=== PATIENT | male | born 1940 | race Caucasian/White ===

== ENCOUNTER 2017-03-27 15:03 | Emergency (ER) | payer MEDICAID, OTHER, SELFPAY ==
[~2017-03-27] VITALS: Ht 177.8 cm; Wt 69.2 kg
[2017-03-27] MEDS ORDERED: SODIUM CHLORIDE 0.9% 1,000 ML IV ONE (15:58)
[2017-03-27] MEDS ORDERED: SODIUM CHLORIDE FLUSH 10ML SYR IVF ONE (16:00)
[2017-03-27] MEDS ORDERED: CLOP75TA22 PO (16:05)
[2017-03-27] MEDS ORDERED: LEVO50TA5 PO (16:05)
[2017-03-27] MEDS ORDERED: CARV6.252 PO (16:05)
[2017-03-27 16:34] LABS: BLOOD UREA NITROGEN 17 mg/dL (7-18)
[2017-03-27] MEDS ORDERED: OMNIPAQUE 350 MG/ML, 150 ML BOTTLE ONE (18:12)
[2017-03-27 19:53] VITALS: BP 206/109
== END 2017-03-27 20:30 | disposition home or self-care (01) ==
LOC: ED 16:01
DX: I10 Essential (primary) hypertension (principal); I25.10 Atherosclerotic heart disease of native coronary artery without angina pectoris; F17.210 Nicotine dependence, cigarettes, uncomplicated; E03.9 Hypothyroidism, unspecified; I72.4 Aneurysm of artery of lower extremity; I73.9 Peripheral vascular disease, unspecified; J44.9 Chronic obstructive pulmonary disease, unspecified; Z79.02 Long term (current) use of antithrombotics/antiplatelets; Z95.5 Presence of coronary angioplasty implant and graft; I70.212 Atherosclerosis of native arteries of extremities with intermittent claudication, left leg
CPT/HCPCS: 36415; 73706; 80048; 82040; 85025; 85610; 85730; 93005; 96360; 96361; 99285; J7030; Q9967

== ENCOUNTER → 2017-06-18 | Outpatient (CLI) | payer OTHER ==
[~2017-06-18] MED LIST: CARV6.252 PO; CLOP75TA52 PO; LEVO50TA5 PO
== END | disposition home or self-care (01) ==
LOC: RAD 11:40
PROVIDERS: ATTEND Family Medicine
DX: M51.37 Other intervertebral disc degeneration, lumbosacral region (principal)
CPT/HCPCS: 72100

== ENCOUNTER 2017-08-20 07:00 | Day surgery (SDC) | payer OTHER ==
[~2017-08-20] VITALS: Ht 177.8 cm; Wt 71.7 kg
[2017-08-20 07:45] VITALS: BP 178/100
[2017-08-20] MEDS ORDERED: LOSA100T6 PO (08:01)
[2017-08-20] MEDS ORDERED: LACTATED RINGERS 1,000 ML IV SCH (08:24)
[2017-08-20] MEDS ORDERED: FENTANYL PF 100 MCG/2ML ONE ×2 (09:28)
[2017-08-20] MEDS ORDERED: MIDAZOLAM 1 MG/ML, 2ML ONE (09:28)
[2017-08-20] MEDS ORDERED: HYDROmorphone 1 MG/ML, 1ML IV PRN (09:30)
[2017-08-20] MEDS ORDERED: hydrALAzine 20 MG/ML, 1ML IV PRN (09:30)
[2017-08-20] MEDS ORDERED: FENTANYL PF 100 MCG/2ML IV PRN (09:30)
[2017-08-20] MEDS ORDERED: PROMETHAZINE 25 MG/ML, 1ML IV PRN (09:30)
[2017-08-20] MEDS ORDERED: MEPERIDINE/PF 25MG/0.5ML IVPush PRN (09:30)
[2017-08-20] MEDS ORDERED: ONDANSETRON 2MG/ML, 2ML IVPush PRN (09:30)
[2017-08-20] MEDS ORDERED: LABETALOL 5MG/ML, 20ML IV PRN (09:30)
[2017-08-20] MEDS ORDERED: OXYcodone 5 MG/5 ML ORAL.SOL UDC PO PRN (09:30)
[2017-08-20] MEDS ORDERED: LIDOCAINE 1%, 2ML ONE (09:35)
[2017-08-20] MEDS ORDERED: PROPOFOL 10 MG/ML, 20ML ONE (10:12)
[2017-08-20] MEDS ORDERED: GLYCOPYRROLATE 0.2MG/1ML, 5ML ONE (10:12)
[2017-08-20] MEDS ORDERED: CEFAZOLIN 1,000 MG ONE (10:12)
[2017-08-20] MEDS ORDERED: PHENYLEPHRINE 10 MG/ML ONE (10:12)
[2017-08-20] MEDS ORDERED: ROCURONIUM 10 MG/ML,10ML ONE (10:12)
[2017-08-20] MEDS ORDERED: NEOSTIGMINE 1 MG/ML, 10ML ONE (10:12)
[2017-08-20] MEDS ORDERED: LIDOCAINE 2%, 20ML ONE (10:23)
[2017-08-20] MEDS ORDERED: VISIPAQUE 270 MG/ML, 50ML BOTTLE ONE (10:30)
[2017-08-20] MEDS ORDERED: HEPARIN 1,000 UNITS/ML, 10ML ONE (10:46)
[2017-08-20] MEDS ORDERED: PROTAMINE SULFATE 10 MG/ML, 25ML ONE (11:18)
[2017-08-20] MEDS ORDERED: CLOPIDOGREL 75 MG TABLET PO ONE (12:00)
[2017-08-20] MEDS ORDERED: HYDROcodone/APAP 5/325 TABLET ONE (13:37)
[2017-08-20] MEDS ORDERED: HYDROcodone/APAP 5/325 TABLET PO PRN (14:00)
== END 2017-08-20 15:05 ==
LOC: OUT 07:00
PROVIDERS: ATTEND Surgery
DX: I70.203 Unspecified atherosclerosis of native arteries of extremities, bilateral legs (principal); I77.9 Disorder of arteries and arterioles, unspecified; I10 Essential (primary) hypertension; E03.9 Hypothyroidism, unspecified; Z98.890 Other specified postprocedural states; Z95.5 Presence of coronary angioplasty implant and graft; Z79.82 Long term (current) use of aspirin; Z87.891 Personal history of nicotine dependence
CPT/HCPCS: 36140; 36200; 75625; 75716; 93005; J0690; J1644; J2250; J2370; J2704; J2710; J2720; J3010; J3490; J7120; Q9966; 75630

== ENCOUNTER → 2019-12-05 | Outpatient (CLI) | payer MEDICARE ==
[~2019-12-05] MED LIST changes: +LOSA100T14 PO
== END | disposition home or self-care (01) ==
LOC: CVU 13:39
PROVIDERS: ATTEND Nurse Practitioner Family
DX: I08.2 Rheumatic disorders of both aortic and tricuspid valves (principal); I65.23 Occlusion and stenosis of bilateral carotid arteries; I25.10 Atherosclerotic heart disease of native coronary artery without angina pectoris; I10 Essential (primary) hypertension; E78.5 Hyperlipidemia, unspecified
CPT/HCPCS: 93306; 93880

== ENCOUNTER → 2020-07-24 | Outpatient (CLI) | payer MEDICARE | END | disposition home or self-care (01) | LOC: RAD 11:09 | PROVIDERS: ATTEND Internal Medicine Hematology & Oncology | DX: R10.9 Unspecified abdominal pain (principal); Z90.49 Acquired absence of other specified parts of digestive tract | CPT/HCPCS: 78226; A9537 ==

== ENCOUNTER 2020-08-09 13:51 | Emergency (ER) | payer MEDICARE ==
[~2020-08-09] VITALS: Ht 177.8 cm; Wt 68.1 kg
--- NOTE | 2020-08-09 14:03 | NUR ---
triage note: urine specimen cup given to pt for urine sample
[2020-08-09 14:36] LABS: BASOPHILS % (AUTO) 0 % (0-1); EOSINOPHILS % (AUTO) 0 % (1-7); LYMPHOCYTES % (AUTO) 24 % (22-44); MEAN CORPUSCULAR HEMOGLOBIN 22.9 pg (27.5-34.5); MEAN CORPUSCULAR HGB CONC 31.7 g/dL (33.2-36.2); MONOCYTES % (AUTO) 11 % (2-9); NEUTROPHILS % (AUTO) 64 % (42-75); PLATELET COUNT 267 x10^3/uL (130-400); RED BLOOD COUNT 5.48 x10^6/uL (4.38-5.82); RED CELL DISTRIBUTION WIDTH 20.3 % (9.4-14.8)
[2020-08-09 15:03] LABS: MD MORPH REVIEW ONLY
[2020-08-09 15:06] LABS: CHLORIDE 103 mmol/L (98-107); INTERNATIONAL NORMALIZED RATIO 1.15 (0.93-1.1); PROTHROMBIN TIME 12.2 Seconds (9.6-11.5)
[2020-08-09 15:07] LABS: <PLATELET ESTIMATE> ADEQUATE; <PLT MORPHOLOGY> NORMAL PLT MORPH; ANION GAP 6 mmol/L (5-15); ANISOCYTOSIS 1+; BILIRUBIN,TOTAL 0.3 mg/dL (0.2-1.0); CREATININE 1.29 mg/dL (0.7-1.3); MICROCYTOSIS 1+; OVALOCYTES 1+
[2020-08-09 15:08] LABS: ALANINE AMINOTRANSFERASE 16 U/L (12-78); ALBUMIN 2.8 g/dL (3.4-5.0); ALKALINE PHOSPHATASE 128 U/L (45-117); TOTAL PROTEIN 7.6 g/dL (6.4-8.2)
--- NOTE | 2020-08-09 18:03 | NUR ---
CHIEF DEPUTY CLERK/BAILIFF: PT TO ROOM FROM LOBBY
--- NOTE | 2020-08-09 18:40 | NUR ---
BEDSIDE REPORT FROM DELANEY RN, PT CARE TRANSFERRED AT THIS TIME. PT CAME IN BECAUSE HE "FEELS POORLY". PT ANOx4, STATES HE HAS HAD AN ONGOING FEVER, COUGH, FATIGUE, CONSTIPATION, AND NAUSEA. NAD, DAUGHTER WHO LIVES AT HOME IS COVID POSITIVE. WCTM. PT ON SPO2/BP/ECG MONITORING. WAITING FOR ADDITIONAL TEST RESULTS.
--- NOTE | 2020-08-09 18:51 | NUR ---
Report to CARLITOS Esposito
--- NOTE | 2020-08-09 19:41 | NUR ---
pt swabbed for covid, swab walked to lab, provided urinal for urine sample, nad, denies additional needs or questions at this time. bed in lowest, call light on lap, wctm
--- NOTE | 2020-08-09 20:45 | NUR ---
late entry d/t pt care: pt assisted to restroom, unable to urinate at this time. pt nad, denies additional questiosn or needs at this time. provided additional warm blankets for comfort, wctm.
--- NOTE | 2020-08-09 21:46 | NUR ---
rn called ct for when test will be completed. family updated. family states pt has not been eating or drinking d/t nausea, informed erp of new information. pt to be cathed for urine sample. pt resting on janay bran, no change in condition. wctm.
--- NOTE | 2020-08-09 22:00 | NUR ---
PT TO CT AT THIS TIME, NAD, NO CHANGE IN CONDITION, RN AND ERP CONSULTED, PT TO BE CATHED FOR UA WHEN BACK. HEL[facility]
[2020-08-09 22:41] LABS: MICROSCOPIC AUTO
[2020-08-09 23:07] VITALS: BP 156/93
--- NOTE | 2020-08-09 23:26 | NUR ---
Patient given discharge instructions and they have confirmed that they understand the instructions. Patient ambulatory WITH CANE, USED WHEELCHAIR TO LEAVE HOSPITAL, RN CALLED FAMILY TO UPDATE AND INFORM OF DC INSTRUCTIONS. NO PERSONAL BELONGINGS LEFT IN ROOM AT DC. NAD.
== END 2020-08-09 23:27 | disposition home or self-care (01) ==
LOC: ED 23:00
DX: U07.1 COVID-19 (principal); K59.00 Constipation, unspecified; I10 Essential (primary) hypertension; R10.9 Unspecified abdominal pain; R50.9 Fever, unspecified; Z87.891 Personal history of nicotine dependence
CPT/HCPCS: 36415; 71250; 74022; 74176; 80053; 81001; 83690; 85025; 85610; 87635; 99285